=== PATIENT | male | born 1985 | race Caucasian/White ===

== ENCOUNTER 2024-02-29 23:37 | Emergency (ER) | payer BC ==
[~2024-02-29] VITALS: Ht 177.8 cm; Wt 90.9 kg
[2024-03-01] MEDS: ACETAMINOPHEN *IV* 1,000 MG in IV 1 EA IV ONE (01:45)
[2024-03-01] MEDS: LIDOCAINE 2% MDV 20ML VIAL SC ONE (01:56)
[2024-03-01] MEDS: ONDANSETRON 4MG 2ML VIAL IV ONE (01:56)
[2024-03-01] MEDS: MORPHINE 2 MG/ML 1ML VIAL IV ONE (01:58)
[2024-03-01] MEDS: NS 1,000 ML IV ONE (01:58)
[2024-03-01 04:11] VITALS: BP 107/59; TEMP 97; O2SAT 96
== END 2024-03-01 04:50 | disposition short-term general hospital (02) ==
LOC: EDBD 23:37 → M ED 23:37
DX: R55 Syncope and collapse (principal); S01.01XA Laceration without foreign body of scalp, initial encounter; S22.060A Wedge compression fracture of T7-T8 vertebra, initial encounter for closed fracture; S22.050A Wedge compression fracture of T5-T6 vertebra, initial encounter for closed fracture; W17.89XA Other fall from one level to another, initial encounter; Y92.410 Unspecified street and highway as the place of occurrence of the external cause; Y93.9 Activity, unspecified; Y99.9 Unspecified external cause status
CPT/HCPCS: 12002; 70450; 71250; 72125; 72128; 96374; 96375; 99284; J0131; J2405